=== PATIENT | male | born 1990 | race Caucasian/White ===

== ENCOUNTER 2017-04-23 15:08 | Emergency (ER) | payer SELFPAY ==
[2017-04-23 15:16] VITALS: BP 153/78; PULSE 65; RESP 18; TEMP 97.3; O2SAT 99
--- NOTE | 2017-04-23 16:04 | C.PDOC ---
History Of Present Illness Alfredo Ulloa is a 26 y/o male visiting from [place], will be here until July, presents to the ER requesting Propecia refill. He did not bring enough for his visit because he thought he could buy it OTC. He offers no physical complaints. Time Seen by Provider: 04/23/17 15:31 Chief Complaint (Nursing): Med Refill History Per: Patient History/Exam Limitations: no limitations Past Medical History Reviewed: Historical Data, Nursing Documentation, Vital Signs Vital Signs: Last Vital Signs Temp 97.3 F L 04/23/17 15:13 Pulse 65 04/23/17 15:13 Resp 18 04/23/17 15:13 BP 153/78 H 04/23/17 15:13 Pulse Ox 99 04/23/17 16:04 - Medical History Other PMH: Genetic hair loss Surgical History: Tonsillectomy Family History: States: Unknown Family Hx - Social History Hx Tobacco Use: Yes Hx Alcohol Use: No Hx Substance Use: No - Immunization History Hx Tetanus Toxoid Vaccination: No Hx Influenza Vaccination: No Hx Pneumococcal Vaccination: No Review Of Systems Constitutional: Negative for: Fever, Other (Pain) Respiratory: Negative for: Shortness of Breath Physical Exam - Physical Exam Appears: Well, No Acute Distress Neurological/Psych: Oriented x3, Normal Speech Additional Physical Exam Comments: Pt not physically examined -- well appearing in the ER. AAOx3. Vital signs stable. ED Course And Treatment O2 Sat by Pulse Oximetry: 99 (RA) Pulse Ox Interpretation: Normal Medical Decision Making Medical Decision Making: Advised pt to follow up with the clinic for med refill. Disposition Counseled Patient/Family Regarding: Need For Followup - Disposition Referrals: [facility] [Outside] [facility] [Outside] Disposition: HOME/ ROUTINE Disposition Time: 16:04 Condition: STABLE Additional Instructions: Please come to medical clinic tomorrow to apply for inusrance and get soonest appointment for follow up. Forms: [employer] (Macedonian), General Discharge Instructions - Clinical Impression Clinical Impression: Review of medication - PA / PODIATRY TEACHER / Resident Statement MD/DO has reviewed & agrees with the documentation as recorded. - Scribe Statement The provider has reviewed the documentation as recorded by the Scribe (Kacie Champion) All medical record entries made by the Scribe were at my direction and personally dictated by me. I have reviewed the chart and agree that the record accurately reflects my personal performance of the history, physical exam, medical decision making, and the department course for this patient. I have also personally directed, reviewed, and agree with the discharge instructions and disposition.
== END 2017-04-23 16:10 | disposition home or self-care (01) ==
LOC: C.ER 15:08
DX: Z76.0 Encounter for issue of repeat prescription (principal)